=== PATIENT | female | born 1970 | race Caucasian/White ===

== ENCOUNTER → 2019-02-18 | Outpatient (CLI) | payer BC ==
[~2019-02-18] MED LIST: REGADENOSON 0.4 MG/5 ML DISP.SYRIN. IV ONE
--- NOTE | 2019-02-18 10:53 | CARD ---
MR#: [id number] Date of Study: 02/18/2019 Ordering Physician: LUISANA PEARSON, Referring Physician: LUISANA PEARSON, Tech: Trista Grover APPROVED REPORT EXAM: Two-dimensional and M-mode echocardiogram with Doppler and color Doppler. Other Information Quality : AverageHR: 93bpm Technically limited study due to smoking and COPD INDICATION Murmur RISK FACTORS Smoking Asthma 2D DIMENSIONS RVDd2.5 (2.9-3.5cm)Left Atrium(2D)3.4 (1.6-4.0cm) IVSd0.8 (0.7-1.1cm)Aortic Root(2D)2.5 (2.0-3.7cm) LVDd4.9 (3.9-5.9cm)LVOT Diameter1.9 (1.8-2.4cm) PWd0.8 (0.7-1.1cm)LVDs1.9 (2.5-4.0cm) FS (%) 61.3 %SV101.3 ml LVEF(%)90.2 (>50%) Aortic Valve AoV Peak David.120.8cm/sAoV VTI20.3cm AO Peak GR.5.8mmHgLVOT Peak David.104.9cm/s LVOT VTI 21.92cmAO Mean GR.3mmHg BG (VMAX)2.69vo3MKL (VTI)3.18cm2 Mitral Valve MV E Isinkstq784.9cm/sMV E Peak Gr.104mmHg MV DECEL [id number] A Pslqxcxc87.9cm/s MV E Mean Gr.4mmHgMV QFT43mn E/A Ratio1.7MVA (PHT)3.27cm2 TDI E/Lateral E'16.6E/Medial E'15.0 Pulmonary Valve PV Peak Zhjsnkkd024.3cm/sPV Peak Grad.6mmHg Tricuspid Valve TR P. Xaietzjk053rw/sRAP ANANURWE5ebCn TR Peak Gr.28buAkOVFJ00fmCr LEFT VENTRICLE The left ventricle is normal size. There is normal left ventricular wall thickness. The left ventricu lar systolic function is normal. The Ejection Fraction is 60%. There is normal LV segmental wall angy on. The left ventricular diastolic function and filling is normal for age. RIGHT VENTRICLE The right ventricle is normal size. There is normal right ventricular wall thickness. The right ventr icular systolic function is normal. ATRIA The left atrium size is normal. The right atrium size is normal. The interatrial septum is intact wit h no evidence for an atrial septal defect or patent foramen ovale as noted on 2-D or Doppler imaging. AORTIC VALVE The aortic valve is not well visualized. Doppler and Color Flow revealed no significant aortic regurg itation. There is no significant aortic valvular stenosis. MITRAL VALVE The mitral valve is thickened but opens well. There is no evidence of mitral valve prolapse. There is no mitral valve stenosis. Doppler and Color-flow revealed moderate to severe mitral regurgitation. TRICUSPID VALVE The tricuspid valve is normal in structure and function. Doppler and Color Flow revealed trace to mil d tricuspid regurgitation with an estimated PAP of 30 mmHg. There is no tricuspid valve stenosis. PULMONIC VALVE The pulmonic valve is not well visualized. Doppler and Color Flow revealed no pulmonic valvular regur gitation. GREAT VESSELS The aortic root is normal in size. The IVC is normal in size and collapses >50% with inspiration. PERICARDIAL EFFUSION There is no evidence of significant pericardial effusion. Critical Notification Critical Value: No <Conclusion> The left ventricular systolic function is normal. The Ejection Fraction is 60%. There is normal LV segmental wall motion. Moderate to severe mitral regurgitation. Trace to mild tricuspid regurgitation with an estimated PAP of 30 mmHg. There is no evidence of significant pericardial effusion. Signed by : Torito Germain, Electronically Approved : 02/18/2019 10:53:07
[2019-02-18 11:46] LABS: CALCIUM 9.1 mg/dL (8.5-10.1); CHOLESTEROL/HDL RATIO 3.1; CREATININE 0.8 mg/dL (0.6-1.0); GFR 77.2; POTASSIUM 4.1 mmol/L (3.5-5.1)
--- NOTE | 2019-02-18 13:12 | RAD ---
MR#: [id number] Date of Study: 02/18/2019 Ordering Physician: LUISANA MYERS, Referring Physician: TERESE ZAMAN Tech: KWAKU Pollock APPROVED REPORT Test Type: Pharmacological Stress Nurse/Tech: Micaela Palacios RN Test Indications: Chest pain Cardiac History: Family history,smoker Medications: See Electronic Medical Record Medical History: See Electronic Medical Record Resting ECG: SR Resting Heart Rate: 78 bpm Resting Blood Pressure: 119/75mmHg Pretest Chest Pain: No chest pain Nurse/Tech Notes S1,S2 and lungs clear to auscultation. Consent: The procedure was explained to the patient in lay terms. Informed consent was witnessed. Tariq eout was entered into [facility]. History and Stress Test performed by TIARA Brown, LISA (R) (N) Pharm. Details Pharmacologic stress testing was performed using 0.4mg per 5ml of regadenoson given intravenously ove r 7-10 seconds. Stress Symptoms No chest pain or symptoms. POST EXERCISE Reason for Termination: Infusion complete Target HR: No Max HR: 115 bpm 78% of Maximum Predicted HR: 147 bpm Max Blood Pressure: 130/81mmHg Blood Pressure response to exercise: Normal blood pressure response during stress. Heart Rate response to exercise: WNL Chest Pain: No. Arrhythmia: No. ST Change: No. INTERPRETATION Stress EKG Conclusion: The resting EKG shows a sinus rhythm with nonspecific T-wave changes in the an terior leads. The stress EKG shows no significant changes from baseline. No EKG evidence of stressed induced ischemia. Imaging Protocol IMAGE PROTOCOL: Rest Tc-99m/stress Tc-99m 1 day Rest: Stress: Viability: Radiopharm.Tc99m HeognaxkgMa15a Sestamibi Evou58xXz 33mCi Duration 15min. 10min. Img Date 02/18/2019 02/18/2019 Inj-Img Yviq89waz. 60min. Rest Admin Site:IV - Right AntecubitalAdministrator:TIARA Brown, LISA (R)(N) Stress Admin Site: IV - Right AntecubitalAdministrator: Rocío Esparza, NMTCB, ARRT (R)(N) STRESS DATA End Diast. Vol.78.0mlAv. Heart Rate90.0bpm End Syst. Vol.18.0mlCO Index BSA0.0L/min Myocardial Motr430.0gEject. Cwknnddm33.0% Stress Rates Pk. Fill Rate5.67EDV/secLVtime Pk. Fill 183.80msec Pk. Empty Rate5.77ESV/secLVtime Pk. Eject96.37msec 08/19 Pk. Fill1.33EDV/sec Stress Scores Regional WT0.00Summed WT0.00 Regional WM0.00Summed WM0.00 LV Perfusion The stress scans show no significant defects. The rest scans show no significant defects. Nuclear imaging shows no reversible ischemia or infarct. Wall Motion Left ventricular systolic function is normal with no regional wall motion abnormalities and an ejecti on fraction of greater than 70%. LV Perf. Quant 17 Seg. SSS0.00 17 Seg. SRS0.00 17 Seg. SDS0.00 Stress Defect Extent (% LAD)0.00Rest Defect Extent (% LAD)0.00Rev. Defect Extent (% LAD)0.00 Stress Defect Extent (% LCX) 0.00Rest Defect Extent (% LCX)0.00Rev. Defect Extent (% LCX)0.00 Stress Defect Extent (% RCA)0.00Rest Defect Extent (% RCA)0.00Rev. Defect Extent (% RCA)0.00 Stress Defect Extent (% LUKE)0.00Rest Defect Extent (% LUKE)0.00Rev. Defect Extent (% LUKE)0.00 Conclusion 1. No EKG evidence of stress-induced ischemia. 2. Nuclear imaging shows no reversible ischemia or infarct. 3. Normal left ventricular systolic function with an ejection fraction of greater than 70%. 4. Low risk Lexiscan nuclear stress test. Signed by : Luisana Myers MD Electronically Approved : 02/18/2019 13:11:17
--- NOTE | 2019-02-18 14:28 | RAD ---
MR#: [id number] Date of Study: 02/18/2019 Ordering Physician: LUISANA PEARSON, Referring Physician: LUISANA PEARSON, Tech: Erin Doshi RVT,JOSE JUAN APPROVED REPORT Patient Location: OUT-PATIENT Laterality:Bilateral Indications Bruit Dizziness and Vertigo Risk Factors Smoking Doppler Spectral Velocity Analysis Right Left pCCA 85/28 cm/spCCA 118/37 cm/s mCCA 85/33 cm/smCCA 107/38 cm/s dCCA 87/34 cm/sdCCA 87/36 cm/s ECA 83/24 cm/sECA 60/15 cm/s pICA 78/32 cm/spICA 78/35 cm/s Maryjo 79/34 cm/smICA 94/45 cm/s dICA 99/45 cm/sdICA 126/61 cm/s Vert. 55/ cm/sVert. 56/ cm/s ICA/CCA 1.14ICA/CCA 1.07 Findings Grayscale images of the bilateral carotid vessels demonstrates mild plaque on the right and moderate plaque on the left. Spectral waveforms and color Doppler of the right internal and external carotid vessels do not reveal any high-grade stenosis. Overall 0 to less than 50% stenosis by velocity criteria. Normal antegrade vertebral velocities are noted. Normal ICA to CCA ratios noted. Spectral waveforms of the left common carotid and internal and external carotid vessels reveals a lik vlad moderate stenosis approximately 50-69% stenosis by velocity criteria at the level of the distal i nternal carotid artery. Vertebral velocities are antegrade. Normal ICA to CCA ratios noted. Critical Notification Critical Value: No <Conclusion> 1. 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 No focal high-grade stenosis identified. Signed by : Parvez Amado, Electronically Approved : 02/18/2019 14:27:27
== END | disposition home or self-care (01) ==
LOC: ECHO 08:06
PROVIDERS: ATTEND Internal Medicine Cardiovascular Disease
DX: I08.1 Rheumatic disorders of both mitral and tricuspid valves (principal); E78.00 Pure hypercholesterolemia, unspecified; F17.200 Nicotine dependence, unspecified, uncomplicated; Z82.49 Family history of ischemic heart disease and other diseases of the circulatory system
CPT/HCPCS: 36415; 78452; 80048; 80061; 84443; 93017; 93306; 93880; A9500; J2785